=== PATIENT | male | born 1995 | race Caucasian/White ===

== ENCOUNTER 2017-03-08 07:53 | Inpatient (IN) | payer BC, OTHER ==
[~2017-03-08] VITALS: Ht 182.9 cm; Wt 68.0 kg
--- NOTE | 2017-03-08 22:00 | NUR ---
PREADMISSION NOTE Pre-[facility] Patient is alert and oriented x4, ambulatory with steady gait. Pt does not appear intoxicated, and answers all questions appropriately. Pt is observed with facial flushing and a runny nose. Vital signs as follows: BP 128/60, HR 94, RR 18, O2 96%, temp 101.2. Patient reports generalized body aches. He has NKA. Pt reports that he has been using Heroin IV every other day for past 11 days. Last use was 03/05/17. Patient denies any seizure history. Admission to continue on [facility].
[2017-03-08 22:56] LABS: *AMPHETAMINE, URINE NEGATIVE (NEGATIVE); *BARBITURATE, URINE NEGATIVE (NEGATIVE); *CANNABINOID, URINE NEGATIVE (NEGATIVE); *COCCAINE, URINE NEGATIVE (NEGATIVE); *OPIATE, URINE POSITIVE (NEGATIVE); *PHENCYCLIDINE SCREEN,URINE NEGATIVE (NEGATIVE)
[2017-03-08] MEDS ORDERED: diphenhydrAMINE 50 MG CAPSULE PO PRN (23:00)
[2017-03-08] MEDS ORDERED: IBUPROFEN 600 MG TABLET PO PRN (23:00)
[2017-03-08] MEDS ORDERED: ONDANSETRON 4 MG/2 ML VIAL IM PRN (23:00)
[2017-03-08] MEDS ORDERED: MIRALAX 17 GM POWD.PACK PO PRN (23:00)
[2017-03-08] MEDS ORDERED: LOPERAMIDE HCL 2 MG CAPSULE PO PRN ×2 (23:00)
[2017-03-08] MEDS ORDERED: HYDROXYZINE PAMOATE 25 MG CAPSULE PO PRN (23:00)
[2017-03-08] MEDS ORDERED: MAGNESIUM HYDROXIDE 30 ML LIQUID UDC PO PRN (23:00)
[2017-03-08] MEDS ORDERED: ONDANSETRON ODT 4 MG TAB.RAPDIS SL PRN (23:00)
[2017-03-08] MEDS ORDERED: METHOCARBAMOL 750 MG TABLET PO PRN (23:00)
[2017-03-08] MEDS ORDERED: CLONIDINE HCL 0.1 MG TABLET PO PRN (23:00)
[2017-03-08] MEDS ORDERED: MAG HYDROX/AL HYDROX/SIMETH 30 ML LIQUID UDC PO PRN (23:00)
[2017-03-08] MEDS ORDERED: DICYCLOMINE HCL 20 MG TABLET PO PRN (23:00)
[2017-03-08] MEDS ORDERED: BUPRENORPHINE HCL 2 MG TAB.SUBL SL PRN (23:00)
--- NOTE | 2017-03-08 23:15 | NUR ---
ADMISSION NOTE Patient is a 21 year old [facility] at 2214 on 03/08/17 for medically supervised detox. Body check performed by [employer] MANAGER and skin check performed by nurse. Patient was oriented to the unit and showed to his room. Patient is A&Ox4, ambulatory; he reports NKA, requests FULL CODE status, is on a regular diet. Vital signs in intake department is as follows: BP 129/60, HR 94, RR 18, O2 sat 96%, temp 101.2. Patient is 6 feet tall and weighs 150 lbs. with a BMI of 20.3. Patient is cooperative and answers all questions appropriately. Patient denies any past medical history. Upon assessment patient's skin is warm and intact, lung sounds are clear bilaterally upon auscultation, PERRLA, capillary refill is <3 seconds, bowel sounds present x4 quadrants upon auscultation, equal natural remedy consultant strength bilaterally. Patient reports last BM was 03/06/17. History of use: 1. Heroin IV 1-2grams every other day for the past 11 days. Last use: 1 gram, 03/05/17. He has used heroin for 11 months total. Prior to relapsing 11 days ago, patient reports 60 days of sobriety. Treatment history: 1. [facility] for 43 days, December 2016. Patient reports pt smokes 14 cigarettes per day. Patient decided to come to treatment today because "I want something better for myself." Symptoms pt experiences when he doesn't use include "body aches, restless legs, runny nose, flushing, headaches." Patient reports that he occasionally takes Seroquel 100-150mg at night for sleep. Patient states he lives with his father. Pt reports he has completed up to 3 years of college education. COWS score upon admission was 8. Patient denies having a primary care physician at home. Patient educated regarding use of the call light. All questions answered. Safety measures in place. Addendum: 03/09/17 at 0610 by MILAGRO FAYE LVN COWS score upon admission was 9.
[2017-03-08] MEDS ORDERED: LORAZEPAM 1 MG TABLET PO SCH (23:30)
[2017-03-08 23:40] VITALS: BP 107/69
[2017-03-08] MEDS ORDERED: LORAZEPAM 1 MG TABLET ONE (23:42)
[2017-03-08] MEDS ORDERED: diphenhydrAMINE 50 MG CAPSULE ONE (23:43)
[2017-03-08] MEDS: ACETAMINOPHEN 325 MG TABLET PO PRN (23:47)
--- NOTE | 2017-03-08 23:48 | NUR ---
PRN BENADRYL, TYLENOL, AND ONE TIME ATIVAN Patient reports feeling anxious, restless and unable to sleep. Patient is observed with facial flushing, teary eyes, runny nose and body aches. Patient has a temperature of 101.2 F. COWS score 9. PRN Benadryl, Tylenol and Ativan administered per orders.
[2017-03-08] MEDS ORDERED: ACETAMINOPHEN 325 MG TABLET ONE (23:59)
--- NOTE | 2017-03-09 00:48 | NUR ---
PRN BENADRYL, TYLENOL, AND ONE TIME ATIVAN REASSESSMENT PRN Tylenol was effective, patient's temp is 98.6 F. PRN Benadryl and one time Ativan effective. Patient is lying in bed resting with eyes closed. Respirations even and unlabored. Unable to obtain COWS score at this time.
[2017-03-09 04:01] VITALS: BP 100/47
--- NOTE | 2017-03-09 04:02 | NUR ---
COWS DEFERRED Patient is asleep in bed, COWS score unable to obtain; deferred. Patient's respirations are even and unlabored. Vital signs obtained.
--- NOTE | 2017-03-09 07:19 | NUR ---
END OF SHIFT Report provided to day shift nurse. Patient is 21 year old male admitted on 03/08/17 for opiate withdrawal. Patient has a history of heroin use of 1-2grams every other day for the last 11 days. Patient denies past medical history. Patient is NKA, FULL CODE, on regular diet. Patient received PRN Benadryl at 2341 Tylenol at 2347. Patient slept for 7 hours, total intake of 500mL, void x1 and stool x0. Patient's last COWS score was 9 at 2242. Safety measures in place.
--- NOTE | 2017-03-09 07:31 | NUR ---
START OF SHIFT Received report from night nurse. 21 year old male aptient admitted on 03/08/17 for Heroin withdrawals. Pt states he only relapsed for 11 days, no taper has been initiated yet. PRN Tylenol administered for temp 101.2, most recent temp is 98.6, prn Ativan, and Benadryl administered and effective. Pt slept for 7 hours. V/S remain WNL. Most recent COWS is 9 at 2200. Pt remains compliant with MD orders. Denies PMH at this time. NKA reported, full code and regular diet. Pt is A/O x4. All needs met at this time, safety measures in place, will continue to monitor.
[2017-03-09] MEDS ORDERED: QUET100T PO (07:43)
[2017-03-09 08:25] VITALS: BP 99/76
[2017-03-09] MEDS ORDERED: TUBERCULIN,PURIF.PROT.DERIV. 5 TU/0.1 ML TEST ID ONE (09:00)
[2017-03-09] MEDS: MULTIVITAMINS,THERAPEUTIC TABLET PO SCH (09:13)
--- NOTE | 2017-03-09 09:27 | NUR ---
pt refused blood draw, explained risk and benefits x3, also explained to pt that he had elevated temperature. pt still refused labs
[2017-03-09] MEDS: ACETAMINOPHEN 325 MG TABLET PO PRN ×2 (11:55→20:03)
--- NOTE | 2017-03-09 12:06 | NUR ---
PRN TYLENOL PRN Tylenol administered per pt request for 6/10 generalized pain. Will reassess.
[2017-03-09] MEDS ORDERED: NICOTINE POLACRILEX 4 MG GUM-PK OF TEN BC PRN (12:15)
[2017-03-09 12:19] VITALS: BP 106/65
[2017-03-09] MEDS ORDERED: SULFAMETH/TRIMETH 800/160 MG TABLET PO ONE (13:00)
--- NOTE | 2017-03-09 13:06 | NUR ---
REASSESSMENT Pt states medication was effective and he feels more comfortable at this time. Reports pain 2/10 and tolerable.
[2017-03-09 16:36] VITALS: BP 114/72
--- NOTE | 2017-03-09 16:54 | NUR ---
PRN CLONIDINE/VISTARIL/ROBAXIN Pt complains of hot/cold chills, "some anxiety" that is unrelieved with nonpharmacological methods and also complains of generalized body aches 12/19. PRN Robaxin 750mg, Vistaril 25mg and Clonidine 0.1mg. COWS is 4. Will reassess. Addendum: 03/09/17 at 1658 by ARTURO BANKS RN COWS 5.
[2017-03-09] MEDS ORDERED: QUET25TA PO (17:53)
[2017-03-09] MEDS ORDERED: LACT1CAP57 PO (17:53)
[2017-03-09] MEDS ORDERED: NICO4GUM38 BC (17:53)
[2017-03-09] MEDS ORDERED: HYDR-3895 PO (17:53)
[2017-03-09] MEDS ORDERED: METH-406 PO (17:53)
[2017-03-09] MEDS ORDERED: IBUP-1955 PO (17:53)
[2017-03-09] MEDS ORDERED: ACET325T53 PO (17:53)
[2017-03-09] MEDS ORDERED: DICY20TA28 PO (17:53)
[2017-03-09] MEDS ORDERED: SULF1TAB3 PO (17:53)
--- NOTE | 2017-03-09 17:54 | NUR ---
UNABLE TO REASSESS EFFECTIVENESS OF PRN MEDICATIONS, PT IS ASLEEP. RR EVEN AND UNLABORED.
--- NOTE | 2017-03-09 18:51 | NUR ---
END OF SHIFT 21 year old male admitted for Heroin withdrawals. Pt reports using 1-2 grams of heroin every other day for the past 11 days. Pt was not started on a taper and refuses Subutex. PRN Clonidine, Robaxin, Vistaril and Tylenol administered. V/S stable with most recent temp at 99.0. Most recent COWS are 5 at 1700. Pt was started on Bactrim for right forearm abscess. Pt verbalizes feelings and is compliant with MD orders. Per MD pt is medically cleared for discharge. Refuses labs and tb test, MD is aware. Pt is sleeping in bed at this time. RR even and unlabored. Night nurse to continue monitoring.
--- NOTE | 2017-03-09 19:00 | NUR ---
Start of Shift Patient Received. Patient is in bed sleeping. Breathing even and non labored. Patient is a 21 year old male admitted on 03/08/17 for Opiate Dependence under the care of Dr. Roca. Patient is currently on PRN medications for increased signs and symptoms of disease process. Patient verbalizes no known allergies, wishes to be full code, following a regular diet, placed on fall and seizure precautions. Patient is noted with an abscess to the right AC. Patient was started on ATB Therapy of Bactrim DS Q12H. No past medical history verbalized. Per endorsement, patient was given PRN Clonidine, Tylenol, Robaxin, Vistaril. Patients last noted COWS 9. All needs attended to promptly. Will continue to monitor.
[2017-03-09 20:01] VITALS: BP 97/58
[2017-03-09] MEDS: SULFAMETH/TRIMETH 800/160 MG TABLET PO SCH (20:03)
[2017-03-09] MEDS: LACTOBACILLUS RHAMNOSUS GG 1 EACH CAPSULE PO SCH (20:03)
--- NOTE | 2017-03-09 20:03 | NUR ---
PRN Medication Administration Patient noted with a temperature of 102.9. Patient is started on ATB therapy of Bactrim DS. Patient was to drink fluids and offered cooling measures. Patient refused cooling measures and stated you can give it to me but Im not going to do it. Ill drink the water instead. PRN Tylenol Administered as per orders. Will continue to monitor.
[2017-03-09] MEDS ORDERED: QUETIAPINE FUMARATE 25 MG TABLET PO SCH (21:00)
--- NOTE | 2017-03-09 21:05 | NUR ---
PRN Medication Reassessment Patient noted in bed sleeping but he is easily aroused to verbal stimuli. Temperature reassessed and noted to be 99.0. Encourage patient to drink fluids and patient verbalized understanding. Will continue to monitor.
[2017-03-10 00:34] VITALS: BP 99/63
[2017-03-10 04:30] VITALS: BP 97/56
--- NOTE | 2017-03-10 07:12 | NUR ---
End of Shift Patient is in bed sleeping. Breathing even and non labored. No signs of pain or discomfort noted. Patient is a 21 year old male admitted on 03/08/17 for Opiate Dependence. He is currently receiving PRN medications for increased signs and symptoms of withdrawal. No known allergies. Full code. Regular Diet. Skin noted with an abscess to right AC. Patient is currently receiving ATB Therapy of Bactrim DS Q12H. No past medical history noted. Patient received PRN Tylenol for elevated temperature with medication noted to be effective. Last noted CIWA 9. Patient is set for discharge today 03/10/17. All needs attended to promptly. Will continue to monitor.
--- NOTE | 2017-03-10 07:21 | NUR ---
START OF SHIFT Received report from night nurse. 21 year old male admitted on 03/08/17 for Heroin withdrawals. Pt is medically cleared for discharge today. PRN Tylenol administered because temp was 102.9 and after medication decreased to 99.0. Most recent COWS is 9, V/S are WNL. Scheduled Seroquel was effective, pt slept for 7 hours. All needs met at this time. Will continue to monitor.
[2017-03-10 08:02] VITALS: BP 105/80
[2017-03-10] MEDS: SULFAMETH/TRIMETH 800/160 MG TABLET PO SCH (08:24)
[2017-03-10] MEDS: MULTIVITAMINS,THERAPEUTIC TABLET PO SCH (08:24)
[2017-03-10] MEDS: LACTOBACILLUS RHAMNOSUS GG 1 EACH CAPSULE PO SCH (08:24)
--- NOTE | 2017-03-10 09:16 | NUR ---
PRN MOTRIN PRN Motrin 600 mg administered for right forearm pain 12/19 related to abscess. Warm compress provided for comfort.
--- NOTE | 2017-03-10 09:45 | NUR ---
D/C NOTE Pt is A/O x4. Denies SI/HI or hallucinations. Pt CIWA is 4. All pt belongings including prescriptions are in belonging bag. Pt did not bring any home medications. Pt states his abscess hurts but he doesn't want it taken care of and he will see an outpatient MD if needed. D/C instructions provided and paperwork signed for. All needs met. Pt is stable. Pt is being accompanied by DRIVE WORKER at this time to be transported to rehab.
== END 2017-03-10 09:45 | disposition other institution (70) | DRG 897 ==
LOC: SRC 21:48
PROVIDERS: ADMIT Internal Medicine; ATTEND Internal Medicine
PROC: HZ2ZZZZ Detoxification Services for Substance Abuse Treatment (ICD-10-PCS; principal; 2017-03-08)
DX: F11.23 Opioid dependence with withdrawal (principal); L03.113 Cellulitis of right upper limb; F17.210 Nicotine dependence, cigarettes, uncomplicated; S51.031S Puncture wound without foreign body of right elbow, sequela; X78.8XXS Intentional self-harm by other sharp object, sequela; F12.20 Cannabis dependence, uncomplicated; G47.00 Insomnia, unspecified; Z91.19 Patient's noncompliance with other medical treatment and regimen; F41.9 Anxiety disorder, unspecified; R50.9 Fever, unspecified
CPT/HCPCS: 80307; 80361; 86580; A4663; Q0163